=== PATIENT | male | born 1935 | race Caucasian/White ===

== ENCOUNTER 2016-04-25 16:07 | Emergency (ER) | payer MEDICARE ==
[~2016-04-25] VITALS: Ht 172.7 cm; Wt 61.8 kg
[~2016-04-25 16:07] MED LIST: ACYC400T17 PO; ATRV10T PO; ESCI5TAB PO; IND40 PO; LATA2.5D6 OP; LEVO50TA39 PO; MULT-892 PO; ONDA8TAB10 PO; TIMO5SOL4 OP
[2016-04-25 16:11] VITALS: BP 144/76; PULSE 54; RESP 16; O2SAT 100
--- NOTE | 2016-04-25 16:29 | ED.REPORT ---
HPI-Syncope Date of Service Apr 25, 2016 ED Provider: Andrew Mcintyre MD Patient is a 80 year male who presents to the ED after being referred by Urgent Care complaining of lightheadedness since he had a shoulder massage without neck manipulation a few days ago. Right after his massage when he was standing to get dressed, he felt dizzy, lightheaded, and fainted for about a minute. When he fell he landed on his shoulder but did not hit his head. Associated symptoms include trouble walking. He denies fever, chills, SOB, diaphoresis, headaches, spinning sensation, numbness, weakness, unusual swelling, or any other symptoms. His symptoms are different from his normal vertigo feelings. He recently found out he has asbestos and had biopsies of his lungs. He is not on any new medications. He takes a low dose os Aspirin daily and is not on any other blood thinners. Nursing Notes Stated Complaint: DIZZY Chief Complaint: General Complaint Nursing Notes Reviewed: Yes (Grupanya, Embue not reconciled) Allergies: Coded Allergies: No Known Allergies (Verified Allergy, Unknown, 04/25/16) Scheduled Acyclovir-Expunged Drug, Do Not Renew! (Acyclovir-Expunged Drug, Do Not Renew!) 400 Mg Tablet 400 MG PO BID Atorvastatin-Expunged Drug, Do Not Renew! (Atorvastatin-Expunged Drug, Do Not Renew!) 10 Mg Tablet 5 MG PO DAILY Escitalopram-Expunged Drug, Do Not Renew! (Lexapro-Expunged Drug, Do Not Renew! ) 5 Mg Tablet 5 MG PO DAILY Levothyroxine-Expunged Drug, Do Not Renew! (Levoxyl-Expunged Drug, Do Not Renew! ) 50 Mcg Tablet 50 MCG PO DAILY Multivitamin (Daily Value) 1 Each Tablet 1 EACH PO DAILY Propranolol-Expunged Drug, Do Not Renew! (Propranolol-Expunged Drug, Do Not Renew!) 40 Mg Tab 40 MG PO BID Timolol-Expunged Drug, Do Not Renew! (Timolol XE 0.5%-Expunged Drug, Do Not Renew!) 5 Ml Ashli.gel 5 ML OP BID Scheduled PRN Ondansetron ODT (Ondansetron ODT) 8 Mg Tab.rapdis 8 MG PO QID PRN PRN For Nausea General Time Seen by Provider: 16:24 Chief Complaint Lost consciousness Hx Obtained From: Patient Arrived By: Walk-in Similar Sx Previous: No Past Medical History ECHO: 09/22/15 Normal left ventricle size with ejection fraction 60-65%. Mildly dilated right atrium. The bioprosthetic aortic valve is well-seated. The peak aortic velocity is 273 cm/sec (the previous exam was 287 cm/sec) Mild tricuspid regurgitation. The right ventricular systolic pressure is estimated at 20mmHg assuming a right atrial pressure of 3 mmHg. Comparison is made with the echocardiogram of 05/25/12, there has been no significant change. Past Medical History CAD hypertension ho shingles in the distant past, Glaucoma ho heart murmur, now s/p bioprosthetic heart valve hypothyroidism h/o "irritable bowel syndrome that resolved with not eating fruit" Chest CT 03/2016: Wispy opacity is seen within the right middle lobe, which is much less nodular appearing on the current study than on the prior CT dated 11/01/15", [address] recommended Reports: Coronary artery disease Past Surgical History Bioprosthetic aortic valve CABG s/p cardiac cath for NSTEMI revealing 3 vessel dz Bilateral groin hernia repair left knee arthroscopy Smoking History Never Smoker Social History Alcohol Use: 1-3 per week Drug Use: Denies drug use Other Social History: Good social support, Ambulatory Status Independent Review of Systems Constitutional: Denies: Chills, Fever Respiratory: Denies: Shortness of breath Musculoskeletal: Denies: Extremity swelling Skin: Denies Diaphoresis Neurologic: Reports: Lightheaded, Problem walking, Denies: Headache, Numbness, Spinning sensation, Weakness Complete sys rev & neg: except as marked. Physical Exam Initial Vital Signs Vital Signs (First) Date Time Temp Pulse Resp B/P Pulse Ox O2 Delivery O2 Flow Rate FiO2 04/25/16 16:11 36.4 54 16 144/76 100 Room Air Initial VS: Reviewed, Vital signs normal Head / Eyes: Atraumatic, Normocephalic Abdomen / GI: Soft, Non-tender Skin: Warm, Dry Psychiatric: Mood/affect normal, Behavior normal, Normal thought content General/Constitutional: Awake, Alert, Well developed Respiratory / Chest: Breath sounds NL, Breath sounds = bilat, No respiratory distress Cardiovascular: Heart rate NL Heart Sounds / Murmur: Positive: Murmur present... (III/) 3/6 murmur with split heart sounds (likely chronic from valve replacement). Lower Extremity / Pelvis / MS: No edema Neurologic: Oriented X3, Speech NL Interpretation & Diagnostics Lab Results Interpretation Result Diagram: 04/25/16 1650 04/25/16 1650 Test 04/25/16 16:50 White Blood Count 5.1th/mm3 (3.8-10.1) Red Blood Count 4.30mil/mm3 (4.40-5.80) Hemoglobin 14.0g/dL (13.8-17.2) Hematocrit 42.1% (41.0-50.0) Mean Corpuscular Volume 97.9fL (81-100) Mean Corpuscular Hemoglobin 32.6pg (27.0-35.0) Mean Corpuscular Hemoglobin Concent 33.3% (32.0-37.0) Red Cell Distribution Width 12.8% (12.3-15.4) Platelet Count 166bil/L (150-400) Neutrophils (%) (Auto) 64.1% (40-74) Lymphocytes (%) (Auto) 22.7% (14-46) Monocytes (%) (Auto) 11.8% (4-12) Eosinophils (%) (Auto) 0.8% (0-5) Basophils (%) (Auto) 0.4% (0-3) Prothrombin Time 11.1sec (8.1-12.5) Prothromb Time International Ratio 1.04ratio Sodium Level 137mEq/L (134-144) Potassium Level 4.2mEq/L (3.5-5.2) Chloride Level 98mEq/L (97-108) Carbon Dioxide Level 26mmol/L (18-29) Blood Urea Nitrogen 15mg/dL (8-27) Creatinine 0.69mg/dL (0.76-1.27) Estimat Glomerular Filtration Rate 118mL/min (>59) Glucose Level 117mg/dL (60-99) Calcium Level 9.2mg/dL (8.5-10.1) Magnesium Level 2.1mg/dL (1.6-2.6) Total Bilirubin 0.4mg/dL (0.0-1.2) Aspartate Amino Transf (AST/SGOT) 31U/L (0-50) Alanine Aminotransferase (ALT/SGPT) 15U/L (0-44) Alkaline Phosphatase 68U/L (25-160) Troponin T < 0.010ug/L (0.0-0.011) Total Protein 7.1g/dL (6.4-8.4) Albumin 4.3g/dL (3.4-5.0) Hold Egan Top Tube Received (Received) Lab Results Interpretation: CBC normal CMP normal Troponin negative (event 2 days ago) ECG Interpretation ECG Interpretation: Sinus bradycardia rate 52 RBBB and LAFB unchanged from 02/16/16 Time: 17:06 Interpreted by: ED physician X-Ray Chest Interpretation Chest Xray Interpretation: IMPRESSION: Acute disease is not seen in the chest. Prominent pleural calcified plaques are present consistent with history of asbestosis. Dictated by: Magdaleno Manzanares M.D. on 04/25/2016 at 17:51 Approved by: Magdaleno Manzanares M.D. on 04/25/2016 at 17:52 View: Portable, 1 view Interpretation / Wet Read by: Interpret - Radiologist Re-Eval/Medical Decision Med Decision/Clinical Course This is a 80-year-old male sent over from urgent care with complaint of syncope and some residual dizziness. This is a patient of prior coronary disease, CABG , with a bioprosthetic aortic valve developed a brief 1 minute syncopal episode 2 days ago following massage. He reports he is very relaxed, he did not have any chiropractic or neck manipulations, to sustain a back massage, and then he stood up and nearly passed out. It sounds vasovagal, he had no chest pain, no shortness breath. He reports he did not hit his head, he has had no headache, but he felt a little dizzy ever since. He was worried that it might be blood pressure related, so that is the reason went to urgent care to have his blood pressure checked. His blood pressure was normal. he has had vertigo in the past and states this is different, as there is no sense of spinning or movement. He is able to ambulate, he has no other complaints. He denies any new medications since not any overt medications that likely clearly explain this. He reports that he has had no exertional symptoms he lives on a house with 3 stories, and then 2 stories down to review her room, she reports is constant climbing up and down about approximately 5 flights, and reports no dyspnea on exertion, no chest pain, no shortness of breath. On exam he appears well. He has mild 2/6 heart murmur, but has a valve-with no signs of acute congestive heart failure evident on clinical exam. EKG is without any interval change. Blood work is normal including a troponin, given his event was 2 days ago not funny evidence for serial troponins. Clinical history remain suspicious for vasovagal event. His symptoms were non- exertional, he reports he has been able to exert with no symptoms suggestive valve incompetence, failure or acute change. He has had a relatively recent echocardiogram a few months ago that is demonstrated clinical stability. I did briefly discuss the case with the on-call aerographer for their thoughts-and they agree the patient is not having exertional symptoms are finally, his presentation suggests vasovagal, that an acute or even immediate follow-up echocardiogram is not really indicated given his stability both clinically, and with his prior echocardiogram. The patient is ambulatory, walking up and down the department appears well. He is not orthostatic. He has no findings to suggest infection, bleeding, medication event. He was simply looking for reassurance that his blood pressure was okay, which it is. He is being discharged, routine precautions are reviewed. He has close follow- up with primary care physician already scheduled. Source of Hx: Old records Re-Evaluation/Progress : Time of Eval: 19:06 )( Re-Eval Neurologic Exam: Alert Re-Evaluation/Progress Note: Rechecked patient. He is feeling better and requesting to go home. Discussed plan for discharge. Patient understands and agrees with plan. All questions addressed at this time. Consultation : Referral / Consult Name: Helio Moraes MD Consulted With: Cardiology Call Returned at: 19:32 Gear Grinder: Agrees with eval, Agrees with plan Note: Discussed patient's case. Patient does not need emergent echo. Differential Diagnosis: Positive: Vasovagal syncope, Negative: Abdominal aortic aneurysm, Acute coronary syndrome, Alcohol abuse, Anemia, Arrhythmia, Cerebrovascular accident, Chest pain, acute, Dysrhythmia, Electrolyte disorder, Head trauma, Hypoglycemia, Malingering, Pulmonary embolus , Seizure, Subarachnoid hemorrhage, Thoracic aortic dissect, Transient ischemic attack Counseled Regarding: Diagnosis, Lab results, Need for follow-up, When/why to return to ED Discharge & Departure Impression: Primary Impression: Dizziness Additional Impression: Syncope Syncope type: unspecified Qualified Code: R55 - Syncope and collapse Disposition: Home Discharge Condition All VS Reviewed: Yes Condition: Improved Additional Instructions: 1. A dangerous cause of the syncopal (passing out) was not identified, and the description of passing out she provided following the massage is suspicious for what called "vasovagal" cause, which is benign. Overt with your cardiac history of further evaluation was pursued in the emergency department-all appear testing and evaluation here was normal. A dangerous cause again was not found. 2. I do not find any indication that it is related to the vitamin supplements you have been taking. 3. Keep your follow-up as currently scheduled Dr. Hanna 4. Return to the ED if new or worsening symptoms occur. Referrals: Jayden Barbour MD (PCP) Scribe Attestation Portions of this note were transcribed by Curt Villasenor. I, Dr. Mcintyre personally performed the history, physical exam and medical decision-making; I reviewed and confirmed the accuracy of the information in the transcribed note. Signed by: Curt Villasenor 04/25/2016, 1937 copies to: Jayden Barbour MD, Matthew F MD Apr 25, 2016 16:29 CURT VILLASENOR Apr 25, 2016 17:10
[2016-04-25 17:04] LABS: BASOPHILS % (AUTO) 0.4 % (0-3); EOSINOPHILS % (AUTO) 0.8 % (0-5); MONOCYTES % (AUTO) 11.8 % (4-12); Mean Corpuscular Hemoglobin 32.6 pg (27.0-35.0); Mean Corpuscular Volume 97.9 fL (81-100); NEUTROPHILS % (AUTO) 64.1 % (40-74); Platelet Count 166 bil/L (150-400)
[2016-04-25 17:25] LABS: INR 1.04 ratio
[2016-04-25 17:32] LABS: TROPONIN T < 0.010 ug/L (0.0-0.011)
[2016-04-25 17:41] LABS: Magnesium 2.1 mg/dL (1.6-2.6)
--- NOTE | 2016-04-25 17:53 | DRSVH ---
PROCEDURE: X-RAY CHEST ONE VIEW, PORTABLE ([id number]) INDICATIONS: syncope TECHNIQUE: One view of the chest was acquired. COMPARISON: [facility], CR, XR CHEST 2VW, 10/27/2015, 13:48. FINDINGS: Surgical changes and devices: Sternotomy wires are present. Lungs and pleura: No pleural effusions or pneumothorax. Lungs are elias of acute disease. Prominent calcified pleural plaques are present. No effusions are seen. No pneumothorax is seen.. Mediastinum: Mediastinal contours appear normal. Heart size is normal. Bones and chest wall: No suspicious bony lesions. Overlying soft tissues appear unremarkable. IMPRESSION: Acute disease is not seen in the chest. Prominent pleural calcified plaques are present consistent with history of asbestosis. Dictated by: Magdaleno Manzanares M.D. on 04/25/2016 at 17:51 Approved by: Magdaleno Manzanares M.D. on 04/25/2016 at 17:52
[2016-04-25 17:57] VITALS: BP_SYST 131; BP_SYST 138; BP_DIAS 75; BP_DIAS 77; BP_DIAS 79; PULSE 57; PULSE 58; PULSE 60; O2SAT 100
[2016-04-25 19:46] VITALS: BP 152/80; PULSE 55; RESP 18; O2SAT 100
== END 2016-04-25 19:47 | disposition home or self-care (01) ==
LOC: SED 16:07
DX: R42 Dizziness and giddiness (principal); R55 Syncope and collapse
CPT/HCPCS: 36415; 71010; 80053; 83735; 84484; 85025; 85610; 93005; 99285; G0463